=== PATIENT | male | born 1980 | race Two or more races ===

== ENCOUNTER 2023-02-03 15:20 | Emergency (ER) | payer SELFPAY ==
[~2023-02-03] VITALS: Ht 172.7 cm; Wt 81.6 kg
--- NOTE | 2023-02-03 15:30 | NUR ---
RECEIVED PT 42 YRS MALE CAME BY PRAMDIC TRIP AND FALL C/O PAIN ON RT SHASA NO DIFRMITY
--- NOTE | 2023-02-03 15:53 | NUR ---
X RAY DONE AT BED SIDE OR RT CLIF
[2023-02-03] MEDS ORDERED: KETOROLAC TROMETHAMINE INJ 60 MG/2 ML VIAL IM ONE (16:00)
[2023-02-03] MEDS ORDERED: KETOROLAC TROMETHAMINE INJ 30 MG/ML VIAL ONE (16:09)
--- NOTE | 2023-02-03 16:21 | NUR ---
PAIN LEVEL 6/10 TORDOL 30MG IM WAS GIVEN pt hx parplagia 25 yrs ago
[2023-02-03 16:24] VITALS: BP 126/97
[2023-02-03] MEDS ORDERED: IBUP-1953 PO (16:59)
[2023-02-03] MEDS ORDERED: TYL2T PO (16:59)
--- NOTE | 2023-02-03 17:00 | NUR ---
Jessenia jaramillo in [facility] - 02/03/23 at 1756 by YURI Patient discharged to home in stable condition. Written and verbal after care instructions given. Patient verbalizes understanding of instruction.
--- NOTE | 2023-02-03 17:07 | NUR ---
Patient discharged to home in stable condition. Written and verbal after care instructions given. Patient verbalizes understanding of instruction.
== END 2023-02-03 17:08 | disposition home or self-care (01) ==
LOC: ER 15:29
DX: S40.021A Contusion of right upper arm, initial encounter (principal); W01.0XXA Fall on same level from slipping, tripping and stumbling without subsequent striking against object, initial encounter; Y93.89 Activity, other specified; Y92.511 Restaurant or cafe as the place of occurrence of the external cause; Y99.8 Other external cause status
CPT/HCPCS: 99284; 96372; 73090; 73060; 73030; J1885